=== PATIENT | male | born 1955 | race Caucasian/White ===

== ENCOUNTER 2018-10-03 10:48 | Inpatient (IN) | payer MEDICAID ==
[~2018-10-03] VITALS: Ht 188 cm; Wt 71.5 kg
[~2018-10-03 10:48] MED LIST: CIPR7.5D OT; CLOP75TA52 PO; FLUC100T4 PO; HYDR-3653 PO; IBUP-1484 PO; LISI-167 PO; METH750T2 PO; OFLO10DR24 EACHEYE; ZOLP5TAB6 PO
--- NOTE | 2018-10-03 11:15 | NUR ---
PT SENT TO ER FROM [facility] FOR ABSENT PULSE IN LEFT BIG TOE. PT STATES " STUBBED TOE ABOUT A MONTH AGO," NOW TOE IS COLD, PAINFUL, BLACK IN COLOR NOTED AT TIP OF TOE, UNABLE TO PALPATE PULSE OR FIND WITH DOPPLER. RECENT DIAGNOSIS OF "OCCLUSION" IN UPPER LEFT THIGH, PT TAKING BLOOD THINNERS. ALSO NOTED SWELLING TO RIGHT FOOT PULSES PALPABLE. CONNECTED TO MONITORS, HTN, OTHER VSS. FAMILY AT BEDSIDE. CALL LIGHT WITHIN REACH. AWAITING FURTHER ORDERS AT THIS TIME
--- NOTE | 2018-10-03 11:29 | NUR ---
MD AT BEDSIDE TO ASSESS PT
[2018-10-03] MEDS ORDERED: HYDROmorphone 2 MG/ML, 1ML ONE (11:43)
[2018-10-03 11:53] LABS: BASOPHILS # (AUTO) 0.04 x10^3/uL (0-0.1); BASOPHILS % (AUTO) 0 % (0-1); EOSINOPHILS # (AUTO) 0.13 x10^3/uL (0-0.4); EOSINOPHILS % (AUTO) 1 % (1-7); LYMPHOCYTES # (AUTO) 3.04 x10^3/uL (1-3.4); LYMPHOCYTES % (AUTO) 25 % (22-44); MD NO; MEAN CORPUSCULAR HEMOGLOBIN 32.8 pg (27.5-34.5); MEAN CORPUSCULAR HGB CONC 33.7 g/dL (33.2-36.2); MEAN CORPUSCULAR VOLUME 97.5 fL (81-97); MEAN PLATELET VOLUME 7.4 fL (7.4-10.4); MONOCYTES # (AUTO) 0.89 x10^3/uL (0.2-0.8); MONOCYTES % (AUTO) 7 % (2-9); NEUTROPHILS # (AUTO) 7.94 x10^3/uL (1.8-6.8); NEUTROPHILS % (AUTO) 66 % (42-75); PLATELET COUNT 335 x10^3/uL (130-400); RED BLOOD COUNT 5.09 x10^6/uL (4.38-5.82); RED CELL DISTRIBUTION WIDTH 13.9 % (9.4-14.8)
[2018-10-03] MEDS ORDERED: HYDROmorphone 1 MG/ML, 1ML IVPush PRN (12:00)
[2018-10-03 12:01] LABS: INTERNATIONAL NORMALIZED RATIO 0.97 (0.93-1.1); PROTHROMBIN TIME 10.3 Seconds (9.6-11.5)
[2018-10-03 12:03] LABS: ALBUMIN 3.4 g/dL (3.4-5.0); ANION GAP 5 mmol/L (5-15); CALCIUM 8.5 mg/dL (8.5-10.1); CHLORIDE 110 mmol/L (98-107)
[2018-10-03 12:07] LABS: ALANINE AMINOTRANSFERASE 44 U/L (12-78); ALKALINE PHOSPHATASE 51 U/L (45-117); BILIRUBIN,TOTAL 0.4 mg/dL (0.2-1.0); TOTAL PROTEIN 7.4 g/dL (6.4-8.2)
--- NOTE | 2018-10-03 12:09 | NUR ---
ALL RESULTS BACK AT THIS TIME, CHART UP FOR RECHECK. AWAITING DISPO
--- NOTE | 2018-10-03 13:00 | NUR ---
PT SLEEPING IN BED WITH FAMILY AT BEDSIDE. VSS. PAYNE. AWAITING RECORDS FROM [facility] AT THIS TIME
--- NOTE | 2018-10-03 13:22 | NUR ---
F/U CALL PLACED FOR RECORDS, STILL AWAITING FAX AT THIS TIME.
--- NOTE | 2018-10-03 14:14 | NUR ---
RECORDS RECEIVED, PAGE OUT FOR VASCULAR PER MD
--- NOTE | 2018-10-03 14:19 | NUR ---
MD TO BEDSIDE TO UPDATE PT AND FAMILY ON POC.
--- NOTE | 2018-10-03 15:07 | NUR ---
PT TO BE ADMITTED TO [facility].
[2018-10-03] MEDS ORDERED: LISI-170 PO (15:12)
[2018-10-03] MEDS ORDERED: WARFARIN (15:12)
--- NOTE | 2018-10-03 15:37 | NUR ---
REPORT GIVEN TO REID ESTEBAN, PT READY FOR TRANSPORT TO FLOOR AFTER RETURNING FROM CT
[2018-10-03] MEDS ORDERED: OMNIPAQUE 350 MG/ML, 150 ML BOTTLE ONE (16:04)
[2018-10-03 16:23] VITALS: BP 127/85
[2018-10-03] MEDS ORDERED: GUAIFENESIN/COD200MG-20MG/10ML LIQUID PO PRN (17:30)
[2018-10-03] MEDS ORDERED: HEPARIN 5,000 UNITS/ML, 1ML IV ONE (17:30)
[2018-10-03] MEDS ORDERED: ACETAMINOPHEN 325 MG TABLET PO PRN (17:30)
[2018-10-03] MEDS ORDERED: DOCUSATE 100 MG CAPSULE PO PRN (17:30)
[2018-10-03] MEDS ORDERED: hydrALAzine 20 MG/ML, 1ML IVPush PRN (17:30)
[2018-10-03] MEDS ORDERED: ONDANSETRON 2MG/ML, 2ML IVPush PRN (17:30)
[2018-10-03] MEDS: morphine SULFATE 10 MG/ML, 1ML IVPush PRN ×2 (17:47→21:36)
[2018-10-03] MEDS ORDERED: PENT400T9 PO (17:53)
[2018-10-03] MEDS: D5%-0.45NACL+KCL 20MEQ 1,000 ML IV SCH (17:58)
[2018-10-03] MEDS: HEPARIN 25,000 UNITS/500ML PMX 500 ML IV PRN (18:19)
[2018-10-03 21:08] VITALS: BP 144/83
[2018-10-03] MEDS: METHOCARBAMOL 750 MG TABLET PO SCH (21:36)
[2018-10-03] MEDS: LISINOPRIL 20 MG TABLET PO SCH (22:38)
[2018-10-03] MEDS: HYDROcodone/APAP 5/325 TABLET PO PRN (23:19)
[2018-10-04] MEDS: HEPARIN 5,000 UNITS/ML, 1ML IV PRN ×3 (01:13→22:29)
[2018-10-04] MEDS: HYDROcodone/APAP 5/325 TABLET PO PRN ×5 (03:16→23:16)
[2018-10-04 03:26] VITALS: BP 125/78
[2018-10-04] MEDS: D5%-0.45NACL+KCL 20MEQ 1,000 ML IV SCH ×2 (03:44→15:36)
[2018-10-04] MEDS: morphine SULFATE 10 MG/ML, 1ML IVPush PRN ×4 (04:44→20:43)
[2018-10-04 07:33] VITALS: BP 113/70
[2018-10-04] MEDS: METHOCARBAMOL 750 MG TABLET PO SCH ×3 (08:19→20:43)
[2018-10-04 08:21] VITALS: BP 116/75
[2018-10-04] MEDS: LISINOPRIL 20 MG TABLET PO SCH (08:21)
[2018-10-04 08:25] LABS: BASOPHILS # (AUTO) 0.22 x10^3/uL (0-0.1); BASOPHILS % (AUTO) 2 % (0-1); EOSINOPHILS # (AUTO) 0.36 x10^3/uL (0-0.4); EOSINOPHILS % (AUTO) 3 % (1-7); LYMPHOCYTES # (AUTO) 4.85 x10^3/uL (1-3.4); LYMPHOCYTES % (AUTO) 37 % (22-44); MD NO; MEAN CORPUSCULAR HEMOGLOBIN 33.1 pg (27.5-34.5); MEAN CORPUSCULAR VOLUME 97.6 fL (81-97); MEAN PLATELET VOLUME 8.3 fL (7.4-10.4); MONOCYTES # (AUTO) 1.22 x10^3/uL (0.2-0.8); MONOCYTES % (AUTO) 9 % (2-9); NEUTROPHILS # (AUTO) 6.55 x10^3/uL (1.8-6.8); NEUTROPHILS % (AUTO) 50 % (42-75); PLATELET COUNT 348 x10^3/uL (130-400); RED BLOOD COUNT 4.99 x10^6/uL (4.38-5.82); RED CELL DISTRIBUTION WIDTH 14.2 % (9.4-14.8)
[2018-10-04 08:37] LABS: ANION GAP 5 mmol/L (5-15); CALCIUM 8.2 mg/dL (8.5-10.1); CHLORIDE 107 mmol/L (98-107); CHOLESTEROL, TOTAL 154 mg/dL (140-239); CREATININE 0.77 mg/dL (0.7-1.3); TRIGLYCERIDES 79 mg/dL (50-200); VLDL CHOLESTEROL 16 mg/dL (0-25)
[2018-10-04 08:38] LABS: CHOL/HDL RATIO 2.7; HDL CHOLESTEROL (DIRECT) 58 mg/dL (40-60)
[2018-10-04 08:39] LABS: HDL CHOL % 38 % (26-37); LDL CHOLESTEROL,CALCULATED 80 mg/dL (54-169); LDL/HDL RATIO 1.4 (0.5-3.0)
[2018-10-04] MEDS ORDERED: LISINOPRIL 20 MG TABLET PO SCH (09:00)
[2018-10-04 14:25] VITALS: BP 138/88
[2018-10-04] MEDS: HEPARIN 25,000 UNITS/500ML PMX 500 ML IV PRN (18:00)
[2018-10-04] MEDS: PENTOXIFYLLINE 400 MG TABLET.ER PO SCH (20:43)
[2018-10-04 20:48] VITALS: BP 112/74
[2018-10-05] MEDS: D5%-0.45NACL+KCL 20MEQ 1,000 ML IV SCH ×3 (01:32→22:16)
[2018-10-05 02:35] VITALS: BP 138/81
[2018-10-05] MEDS: HYDROcodone/APAP 5/325 TABLET PO PRN ×4 (04:10→20:15)
[2018-10-05] MEDS: morphine SULFATE 10 MG/ML, 1ML IVPush PRN ×4 (06:39→22:16)
[2018-10-05 07:53] VITALS: BP 114/76
[2018-10-05] MEDS: LISINOPRIL 20 MG TABLET PO SCH (09:00)
[2018-10-05] MEDS: METHOCARBAMOL 750 MG TABLET PO SCH ×3 (09:00→20:15)
[2018-10-05] MEDS: PENTOXIFYLLINE 400 MG TABLET.ER PO SCH ×2 (09:00→20:15)
[2018-10-05] MEDS: HEPARIN 5,000 UNITS/ML, 1ML IV PRN (11:51)
[2018-10-05 13:26] VITALS: BP 134/88
[2018-10-05] MEDS: HEPARIN 25,000 UNITS/500ML PMX 500 ML IV PRN (16:48)
[2018-10-05 21:11] VITALS: BP 150/92
[2018-10-06] MEDS: HEPARIN 5,000 UNITS/ML, 1ML IV PRN (01:11)
[2018-10-06] MEDS: HYDROcodone/APAP 5/325 TABLET PO PRN ×3 (01:12→11:25)
[2018-10-06 02:38] VITALS: BP 138/78
[2018-10-06 07:04] LABS: BASOPHILS # (AUTO) 0.13 x10^3/uL (0-0.1); BASOPHILS % (AUTO) 1 % (0-1); EOSINOPHILS # (AUTO) 0.37 x10^3/uL (0-0.4); EOSINOPHILS % (AUTO) 4 % (1-7); LYMPHOCYTES % (AUTO) 24 % (22-44); MD NO; MEAN CORPUSCULAR HEMOGLOBIN 33.1 pg (27.5-34.5); MEAN CORPUSCULAR HGB CONC 33.9 g/dL (33.2-36.2); MEAN CORPUSCULAR VOLUME 97.7 fL (81-97); MEAN PLATELET VOLUME 7.6 fL (7.4-10.4); MONOCYTES # (AUTO) 1.11 x10^3/uL (0.2-0.8); MONOCYTES % (AUTO) 10 % (2-9); NEUTROPHILS # (AUTO) 6.55 x10^3/uL (1.8-6.8); NEUTROPHILS % (AUTO) 61 % (42-75); PLATELET COUNT 306 x10^3/uL (130-400); RED BLOOD COUNT 4.62 x10^6/uL (4.38-5.82); RED CELL DISTRIBUTION WIDTH 14.1 % (9.4-14.8)
[2018-10-06 07:17] LABS: ANION GAP 7 mmol/L (5-15); CALCIUM 8.4 mg/dL (8.5-10.1); CHLORIDE 108 mmol/L (98-107); CREATININE 0.72 mg/dL (0.7-1.3)
[2018-10-06 07:40] VITALS: BP 137/72
[2018-10-06] MEDS: METHOCARBAMOL 750 MG TABLET PO SCH ×3 (08:41→22:45)
[2018-10-06] MEDS: D5%-0.45NACL+KCL 20MEQ 1,000 ML IV SCH (08:41)
[2018-10-06] MEDS: morphine SULFATE 10 MG/ML, 1ML IVPush PRN ×3 (08:41→22:46)
[2018-10-06] MEDS: LISINOPRIL 20 MG TABLET PO SCH (08:41)
[2018-10-06] MEDS: PENTOXIFYLLINE 400 MG TABLET.ER PO SCH ×2 (08:48→22:45)
[2018-10-06] MEDS ORDERED: BACITRACIN 50,000 UNIT ONE (11:51)
[2018-10-06] MEDS ORDERED: LIDOCAINE 1%, 20ML ONE (11:51)
[2018-10-06] MEDS ORDERED: HEPARIN 1,000 UNITS/ML, 10ML ONE (11:51)
[2018-10-06] MEDS ORDERED: PROTAMINE SULFATE 10 MG/ML, 5ML ONE (11:51)
[2018-10-06] MEDS ORDERED: THROMBIN 5,000 UNIT VIAL TP ONE (11:51)
[2018-10-06 13:02] VITALS: BP 143/79
[2018-10-06] MEDS ORDERED: PROPOFOL 50 ML ONE (15:45)
[2018-10-06] MEDS ORDERED: FENTANYL PF 250 MCG/5ML ONE ×2 (15:45→18:31)
[2018-10-06] MEDS ORDERED: MIDAZOLAM 1 MG/ML, 2ML ONE (15:45)
[2018-10-06] MEDS ORDERED: SUCCINYLCHOLINE 20 MG/ML, 10ML ONE (17:05)
[2018-10-06] MEDS ORDERED: ONDANSETRON 2MG/ML, 2ML ONE (17:05)
[2018-10-06] MEDS ORDERED: ROCURONIUM 10 MG/ML,10ML ONE (17:05)
[2018-10-06] MEDS ORDERED: CEFAZOLIN 1,000 MG ONE (17:05)
[2018-10-06] MEDS ORDERED: PROPOFOL 10 MG/ML, 20ML ONE (17:05)
[2018-10-06] MEDS ORDERED: DEXAMETHASONE 4 MG/ML, 1ML ONE (17:05)
[2018-10-06] MEDS ORDERED: VISIPAQUE 270 MG/ML, 50ML BOTTLE IV ONE (18:26)
[2018-10-06] MEDS ORDERED: VISIPAQUE 270 MG/ML, 50ML BOTTLE ONE (20:25)
[2018-10-06] MEDS ORDERED: PROMETHAZINE 25 MG SUPP PR PRN (20:30)
[2018-10-06] MEDS ORDERED: hydrALAzine 20 MG/ML, 1ML IV PRN (20:30)
[2018-10-06] MEDS ORDERED: OXYcodone 5 MG/5 ML ORAL.SOL UDC PO PRN (20:30)
[2018-10-06] MEDS ORDERED: PROMETHAZINE 12.5 MG SUPP PR PRN (20:30)
[2018-10-06] MEDS ORDERED: ONDANSETRON 2MG/ML, 2ML IV PRN ×2 (20:30→23:00)
[2018-10-06] MEDS ORDERED: EPHEDRINE 50 MG/ML, 1ML IM PRN (20:30)
[2018-10-06] MEDS ORDERED: ONDANSETRON ODT 8 MG PO PRN (20:30)
[2018-10-06] MEDS ORDERED: EPHEDRINE 50 MG/ML, 1ML IVPush PRN (20:30)
[2018-10-06] MEDS ORDERED: MIDAZOLAM 1 MG/ML, 2ML IV PRN (20:30)
[2018-10-06] MEDS ORDERED: MORPHINE SULFATE 4 MG/ML, 1ML IVPush PRN (20:30)
[2018-10-06] MEDS ORDERED: PROMETHAZINE 25 MG/ML, 1ML IV PRN (20:30)
[2018-10-06] MEDS ORDERED: METOPROLOL 1 MG/ML, 5ML IV PRN (20:30)
[2018-10-06] MEDS ORDERED: ALBUTEROL/IPRATROPIUM 2.5MG/0.5MG, 3 ML NPPB PRN (20:30)
[2018-10-06] MEDS ORDERED: OXYcodone 5 MG/5 ML ORAL.SOL UDC ONE (20:46)
[2018-10-06] MEDS ORDERED: ACETAMINOPHEN 650 MG/20.3 ML UDC ONE (20:46)
[2018-10-06] MEDS ORDERED: FENTANYL PF 100 MCG/2ML ONE (20:46)
[2018-10-06] MEDS: FENTANYL PF 100 MCG/2ML IV PRN ×2 (20:50→21:06)
[2018-10-06] MEDS ORDERED: HYDROmorphone 2 MG/ML, 1ML ONE (21:09)
[2018-10-06] MEDS: HYDROmorphone 2 MG/ML, 1ML IVPush PRN ×2 (21:10→21:18)
[2018-10-06 22:00] VITALS: BP 146/77
[2018-10-06] MEDS: ENOXAPARIN 40 MG/0.4 ML SQ SCH (22:55)
[2018-10-06] MEDS ORDERED: ACETAMINOPHEN 325 MG TABLET PO PRN (23:00)
[2018-10-06] MEDS ORDERED: HYDROcodone/APAP 5/325 TABLET PO PRN (23:00)
[2018-10-07 02:05] VITALS: BP 133/64
[2018-10-07] MEDS: HYDROcodone/APAP 5/325 TABLET PO PRN ×5 (02:05→21:53)
[2018-10-07] MEDS: D5%-0.45NACL+KCL 20MEQ 1,000 ML IV SCH ×2 (03:20→15:52)
[2018-10-07 06:32] LABS: ANION GAP 8 mmol/L (5-15); CALCIUM 8.5 mg/dL (8.5-10.1); CHLORIDE 107 mmol/L (98-107)
[2018-10-07 06:34] LABS: CREATININE 0.72 mg/dL (0.7-1.3)
[2018-10-07 06:42] LABS: MEAN CORPUSCULAR HEMOGLOBIN 32.3 pg (27.5-34.5); MEAN CORPUSCULAR HGB CONC 32.7 g/dL (33.2-36.2); MEAN CORPUSCULAR VOLUME 98.7 fL (81-97); MEAN PLATELET VOLUME 7.8 fL (7.4-10.4); PLATELET COUNT 323 x10^3/uL (130-400); RED BLOOD COUNT 4.44 x10^6/uL (4.38-5.82); RED CELL DISTRIBUTION WIDTH 13.9 % (9.4-14.8)
[2018-10-07 07:02] LABS: BASOPHILS # (AUTO) 0.03 x10^3/uL (0-0.1); BASOPHILS % (AUTO) 0 % (0-1); EOSINOPHILS % (AUTO) 0 % (1-7); LYMPHOCYTES # (AUTO) 1.54 x10^3/uL (1-3.4); LYMPHOCYTES % (AUTO) 11 % (22-44); MD SCAN; MONOCYTES # (AUTO) 1.05 x10^3/uL (0.2-0.8); MONOCYTES % (AUTO) 7 % (2-9); NEUTROPHILS # (AUTO) 11.95 x10^3/uL (1.8-6.8); NEUTROPHILS % (AUTO) 82 % (42-75)
[2018-10-07 07:25] VITALS: BP 95/61
[2018-10-07] MEDS: METHOCARBAMOL 750 MG TABLET PO SCH ×3 (08:43→21:53)
[2018-10-07] MEDS: morphine SULFATE 10 MG/ML, 1ML IVPush PRN ×2 (08:43→13:53)
[2018-10-07] MEDS: LISINOPRIL 20 MG TABLET PO SCH (08:44)
[2018-10-07 08:51] VITALS: BP 101/57
[2018-10-07] MEDS: SODIUM CHLORIDE FLUSH 10ML SYR IVF SCH ×2 (09:00→21:54)
[2018-10-07] MEDS: PENTOXIFYLLINE 400 MG TABLET.ER PO SCH ×2 (10:12→21:53)
[2018-10-07 13:56] VITALS: BP 122/76
[2018-10-07 20:00] VITALS: BP 154/65
[2018-10-07] MEDS: ENOXAPARIN 40 MG/0.4 ML SQ SCH (21:54)
[2018-10-08] MEDS: HYDROcodone/APAP 5/325 TABLET PO PRN ×4 (02:39→21:24)
[2018-10-08] MEDS: morphine SULFATE 10 MG/ML, 1ML IV PRN ×3 (03:14→16:01)
[2018-10-08 03:20] VITALS: BP 102/57
[2018-10-08 05:34] LABS: BASOPHILS # (AUTO) 0.04 x10^3/uL (0-0.1); BASOPHILS % (AUTO) 0 % (0-1); EOSINOPHILS # (AUTO) 0.15 x10^3/uL (0-0.4); EOSINOPHILS % (AUTO) 1 % (1-7); LYMPHOCYTES # (AUTO) 3.72 x10^3/uL (1-3.4); LYMPHOCYTES % (AUTO) 32 % (22-44); MD NO; MEAN CORPUSCULAR HEMOGLOBIN 32.9 pg (27.5-34.5); MEAN PLATELET VOLUME 7.5 fL (7.4-10.4); MONOCYTES % (AUTO) 10 % (2-9); NEUTROPHILS # (AUTO) 6.55 x10^3/uL (1.8-6.8); NEUTROPHILS % (AUTO) 56 % (42-75); PLATELET COUNT 274 x10^3/uL (130-400); RED BLOOD COUNT 4.13 x10^6/uL (4.38-5.82); RED CELL DISTRIBUTION WIDTH 13.9 % (9.4-14.8)
[2018-10-08] MEDS: D5%-0.45NACL+KCL 20MEQ 1,000 ML IV SCH ×2 (05:34→19:00)
[2018-10-08 05:42] LABS: ANION GAP 6 mmol/L (5-15); CALCIUM 8.4 mg/dL (8.5-10.1); CHLORIDE 110 mmol/L (98-107); CREATININE 0.63 mg/dL (0.7-1.3)
[2018-10-08 07:51] VITALS: BP 118/74
[2018-10-08] MEDS: LISINOPRIL 20 MG TABLET PO SCH (09:07)
[2018-10-08] MEDS: GABAPENTIN 100 MG CAPSULE PO SCH ×3 (09:08→21:23)
[2018-10-08] MEDS: METHOCARBAMOL 750 MG TABLET PO SCH ×3 (09:08→21:23)
[2018-10-08] MEDS: PENTOXIFYLLINE 400 MG TABLET.ER PO SCH ×2 (09:08→21:23)
[2018-10-08] MEDS: SODIUM CHLORIDE FLUSH 10ML SYR IVF SCH ×2 (09:09→21:24)
[2018-10-08 13:23] VITALS: BP 107/66
[2018-10-08 19:53] VITALS: BP 127/62
[2018-10-09] MEDS: ENOXAPARIN 40 MG/0.4 ML SQ SCH ×2 (00:21→21:58)
[2018-10-09 02:50] VITALS: BP 112/63
[2018-10-09] MEDS: HYDROcodone/APAP 5/325 TABLET PO PRN ×5 (03:45→21:55)
[2018-10-09 05:40] LABS: MEAN CORPUSCULAR HEMOGLOBIN 32.6 pg (27.5-34.5); MEAN CORPUSCULAR HGB CONC 33.5 g/dL (33.2-36.2); MEAN CORPUSCULAR VOLUME 97.1 fL (81-97); MEAN PLATELET VOLUME 7.7 fL (7.4-10.4); PLATELET COUNT 309 x10^3/uL (130-400); RED BLOOD COUNT 4.28 x10^6/uL (4.38-5.82); RED CELL DISTRIBUTION WIDTH 13.8 % (9.4-14.8)
[2018-10-09 05:47] LABS: ANION GAP 9 mmol/L (5-15); CALCIUM 8.2 mg/dL (8.5-10.1); CHLORIDE 105 mmol/L (98-107)
[2018-10-09 05:50] LABS: CREATININE 0.66 mg/dL (0.7-1.3)
[2018-10-09 06:01] LABS: BASOPHILS # (AUTO) 0.13 x10^3/uL (0-0.1); BASOPHILS % (AUTO) 1 % (0-1); EOSINOPHILS # (AUTO) 0.19 x10^3/uL (0-0.4); EOSINOPHILS % (AUTO) 1 % (1-7); LYMPHOCYTES # (AUTO) 3.43 x10^3/uL (1-3.4); LYMPHOCYTES % (AUTO) 26 % (22-44); MD SCAN; MONOCYTES # (AUTO) 1.71 x10^3/uL (0.2-0.8); MONOCYTES % (AUTO) 13 % (2-9); NEUTROPHILS # (AUTO) 7.79 x10^3/uL (1.8-6.8); NEUTROPHILS % (AUTO) 59 % (42-75)
[2018-10-09 07:02] VITALS: BP 150/73
[2018-10-09] MEDS: D5%-0.45NACL+KCL 20MEQ 1,000 ML IV SCH (08:17)
[2018-10-09] MEDS: METHOCARBAMOL 750 MG TABLET PO SCH ×3 (09:34→21:10)
[2018-10-09] MEDS: LISINOPRIL 20 MG TABLET PO SCH (09:34)
[2018-10-09] MEDS: GABAPENTIN 100 MG CAPSULE PO SCH ×3 (09:34→21:10)
[2018-10-09] MEDS: PENTOXIFYLLINE 400 MG TABLET.ER PO SCH ×2 (09:34→21:10)
[2018-10-09] MEDS: SODIUM CHLORIDE FLUSH 10ML SYR IVF SCH ×2 (09:35→21:00)
[2018-10-09 12:50] VITALS: BP 123/72
[2018-10-09 19:12] VITALS: BP 150/75
[2018-10-10 01:30] VITALS: BP 127/75
[2018-10-10] MEDS: HYDROcodone/APAP 5/325 TABLET PO PRN ×2 (06:14→10:01)
[2018-10-10 08:11] VITALS: BP 123/74
[2018-10-10] MEDS: METHOCARBAMOL 750 MG TABLET PO SCH (09:57)
[2018-10-10] MEDS: GABAPENTIN 100 MG CAPSULE PO SCH (09:57)
[2018-10-10] MEDS: PENTOXIFYLLINE 400 MG TABLET.ER PO SCH (09:57)
[2018-10-10] MEDS: LISINOPRIL 20 MG TABLET PO SCH (09:58)
[2018-10-10] MEDS: SODIUM CHLORIDE FLUSH 10ML SYR IVF SCH (09:59)
[2018-10-10] MEDS ORDERED: DOCU-131 PO (13:17)
[2018-10-10] MEDS ORDERED: ONDA4TAB7 PO (13:18)
[2018-10-10] MEDS ORDERED: SULF1TAB24 PO (13:19)
[2018-10-10 14:04] VITALS: BP 155/68
== END 2018-10-10 14:18 | disposition home or self-care (01) | DRG 253 ==
LOC: ED 13:21 → EDIP 14:56 → 4NOR 16:11
PROVIDERS: ADMIT Hospitalist; ATTEND Hospitalist
PROC: B41G1ZZ Fluoroscopy of Left Lower Extremity Arteries using Low Osmolar Contrast (ICD-10-PCS; 2018-10-06)
PROC: 041L09L Bypass Left Femoral Artery to Popliteal Artery with Autologous Venous Tissue, Open Approach (ICD-10-PCS; 2018-10-06)
PROC: 06BQ0ZZ Excision of Left Saphenous Vein, Open Approach (ICD-10-PCS; principal; 2018-10-06 14:30)
DX: I70.262 Atherosclerosis of native arteries of extremities with gangrene, left leg (principal); I82.402 Acute embolism and thrombosis of unspecified deep veins of left lower extremity; D72.829 Elevated white blood cell count, unspecified; F17.210 Nicotine dependence, cigarettes, uncomplicated; I10 Essential (primary) hypertension; L97.529 Non-pressure chronic ulcer of other part of left foot with unspecified severity; Z80.42 Family history of malignant neoplasm of prostate; Z82.49 Family history of ischemic heart disease and other diseases of the circulatory system; Z95.820 Peripheral vascular angioplasty status with implants and grafts; Z98.41 Cataract extraction status, right eye; Z98.42 Cataract extraction status, left eye; Z88.0 Allergy status to penicillin; Z71.6 Tobacco abuse counseling
CPT/HCPCS: 36415; 75635; 75710; 80048; 80053; 80061; 82040; 82962; 83735; 84100; 85025; 85520; 85610; 85730; 93922; 93970; 96374; 99285; C1729; C1894; G0378; J0690; J1100; J1170; J1644; J1650; J2250; J2405; J2704; J2720; J3010; J3490; Q9966; Q9967; J0330; J2270; J3480